=== PATIENT | female | born 1985 | race Asian ===

== ENCOUNTER 2018-04-25 14:51 | Emergency (ER) | payer OTHER ==
[~2018-04-25] VITALS: Ht 160 cm; Wt 45.4 kg
[2018-04-25 15:27] LABS: *URINE HCG, QUAL NEGATIVE (NEGATIVE)
--- NOTE | 2018-04-25 15:40 | NUR ---
PATIENT WAS SEEN BY . 12 LEAD EKG DONE.
--- NOTE | 2018-04-25 16:09 | NUR ---
DC, RX AND F/U INSTRUCTIONS GIVEN AND EXPLAINED TO PATIENT WHO STATES SHE UNDERSTANDS ALL INSTRUCTIONS.
== END 2018-04-25 16:14 | disposition home or self-care (01) ==
LOC: ER 14:51
DX: R07.89 Other chest pain (principal); Z88.6 Allergy status to analgesic agent; Z88.8 Allergy status to other drugs, medicaments and biological substances
CPT/HCPCS: 71045; 84703; 93005; A4663

== ENCOUNTER 2021-12-02 17:40 | Emergency (ER) | payer OTHER ==
[~2021-12-02] VITALS: Ht 160 cm; Wt 43.1 kg
--- NOTE | 2021-12-02 19:27 | NUR ---
Hands off report given Odilon Alonzo RN.
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
[2021-12-02] MEDS ORDERED: TDAP DIPH,PERTUSS,TET VAC/PF 0.5 ML DISP.SYRIN IM ONE (20:00)
--- NOTE | 2021-12-02 20:02 | NUR ---
Pt given info on Tdap.
[2021-12-02 21:25] VITALS: BP 106/56
== END 2021-12-02 21:25 | disposition home or self-care (01) ==
LOC: ER 17:40
DX: S53.402A Unspecified sprain of left elbow, initial encounter (principal); V18.4XXA Pedal cycle driver injured in noncollision transport accident in traffic accident, initial encounter; Y93.55 Activity, bike riding; Y92.414 Local residential or business street as the place of occurrence of the external cause; Z88.6 Allergy status to analgesic agent
CPT/HCPCS: 73080; 73090; A4663